=== PATIENT | female | born 1950 | race Caucasian/White ===

== ENCOUNTER → 2016-08-23 | Outpatient (CLI) | payer MEDICARE, OTHER ==
--- NOTE | 2016-08-23 19:55 | Diagnostic Imaging Report ---
Bilateral diagnostic mammogram. No prior studies are available for comparison. INDICATION: Right breast tenderness. The current study was also evaluated with a Computer Aided Detection (CAD) system. FINDINGS: There is an 8 mm asymmetry along the outer aspect of the left breast. The breasts are composed of heterogeneously dense parenchyma which may decrease mammographic sensitivity. There are benign-appearing calcifications seen. There is an asymmetry along the outer aspect of the left breast. This is evaluated with focal compression view which demonstrates spreadout of the asymmetry with no underlying suspicious lesion remaining. IMPRESSION: No mammographic evidence of malignancy. Ultrasound evaluation pending. ACR BI-RADS Category 0: Incomplete. (Needs additional imaging evaluation). Result letter will be mailed to the patient. Note: At least 10% of breast cancer is not imaged by mammography. Dictated by: Dictated on workstation # [id number]
--- NOTE | 2016-08-23 21:19 | Diagnostic Imaging Report ---
EXAM: Bilateral breast ultrasound. INDICATION: Right breast tenderness. Asymmetry along the lateral aspect of the left breast. FINDINGS: The four-quadrant and retroareolar regions of the breasts were scanned with no underlying abnormality seen on either side. IMPRESSION: Negative study. Clinical followup for area of tenderness is recommended. If no clinical indication for further diagnostic imaging, then screening annual mammogram would be due in August 2017. BI-RADS 1. ACR BI-RADS Category 1: Negative. Result letter will be mailed to the patient. Note: At least 10% of breast cancer is not imaged by mammography. Dictated by: Dictated on workstation # [id number]
== END ==
LOC: RAD 11:07
PROVIDERS: ATTEND Family Medicine
DX: N64.4 Mastodynia (principal)
CPT/HCPCS: 77066

== ENCOUNTER → 2017-09-06 | Outpatient (CLI) | payer MEDICARE, OTHER ==
--- NOTE | 2017-09-06 13:46 | Diagnostic Imaging Report ---
INDICATION: Screening. COMPARISON: 08/23/2016. TECHNIQUE: Screening digital mammography was performed bilaterally with a Computer Aided Detection (CAD) system. FINDINGS: There is moderately dense fibroglandular tissue bilaterally. There are extensive vascular calcifications. There is no dominant mass, spiculated lesion, or suspicious calcification identified. The skin, nipples, and axillae are unremarkable. IMPRESSION: Benign findings. ACR BI-RADS Category 2: Benign findings. Result letter will be mailed to the patient. Note: At least 10% of breast cancer is not imaged by mammography. Dictated on workstation # [id number]
== END ==
LOC: RAD 09:47
PROVIDERS: ATTEND Family Medicine
DX: Z12.31 Encounter for screening mammogram for malignant neoplasm of breast (principal)
CPT/HCPCS: 77067

== ENCOUNTER → 2018-10-10 | Outpatient (CLI) | payer MEDICARE, OTHER ==
--- NOTE | 2018-10-10 14:06 | Diagnostic Imaging Report ---
INDICATION: Routine screening. COMPARISON: 09/06/2017 and 08/23/2016. TECHNIQUE: 2D and 3D bilateral screening mammography was performed with CAD. FINDINGS: Both breasts remain heterogeneously dense, limiting the sensitivity of mammography. Vascular calcifications are again noted bilaterally. No mass or malignant appearing microcalcifications are seen. The axillae are unremarkable. IMPRESSION: No mammographic features suspicious for malignancy are identified. ACR BI-RADS Category 2: Benign findings. Result letter will be mailed to the patient. Note: At least 10% of breast cancer is not imaged by mammography. Dictated by: Dictated on workstation # [id number]
== END ==
LOC: RAD 09:45
PROVIDERS: ATTEND Family Medicine
DX: Z12.31 Encounter for screening mammogram for malignant neoplasm of breast (principal)
CPT/HCPCS: 77067

== ENCOUNTER → 2019-11-14 | Outpatient (CLI) | payer MEDICARE, OTHER ==
--- NOTE | 2019-11-15 10:25 | Diagnostic Imaging Report ---
INDICATION: Routine screening. COMPARISON is made with prior mammograms from 10/10/2018 and 09/06/2017. 2-D and 3-D bilateral screening mammography was performed with CAD. Both breasts remain heterogeneously dense, limiting the sensitivity of mammography. Benign parenchymal and vascular calcifications are again noted. No dominant mass or malignant appearing microcalcifications are identified. Axillae are unremarkable. IMPRESSION: BI-RADS Category 2 No mammographic features suspicious for malignancy are identified. ACR BI-RADS Category 2: Benign findings. Result letter will be mailed to the patient. Note: At least 10% of breast cancer is not imaged by mammography. Dictated by: Dictated on workstation # [id number]
== END ==
LOC: RAD 15:18
PROVIDERS: ATTEND Family Medicine
DX: Z12.31 Encounter for screening mammogram for malignant neoplasm of breast (principal)
CPT/HCPCS: 77063; 77067

== ENCOUNTER → 2022-03-17 | Outpatient (CLI) | payer MEDICARE, OTHER ==
--- NOTE | 2022-03-17 16:35 | Diagnostic Imaging Report ---
INDICATION: Routine screening. COMPARISON: 11/14/2019 and 10/10/2018. TECHNIQUE: 2D and 3D bilateral screening mammography was performed with CAD. FINDINGS: Both breasts are heterogeneously dense, limiting the sensitivity of mammography. Benign parenchymal and vascular calcifications are noted bilaterally. The axillae are unremarkable. IMPRESSION: No mammographic features suspicious for malignancy are identified. ACR BI-RADS Category 2: Benign findings. Result letter will be mailed to the patient. Note: At least 10% of breast cancer is not imaged by mammography. Dictated by: Dictated on workstation # [id number]
== END ==
LOC: RAD 15:14
PROVIDERS: ATTEND Family Medicine
DX: Z12.31 Encounter for screening mammogram for malignant neoplasm of breast (principal)
CPT/HCPCS: 77063; 77067

== ENCOUNTER → 2023-03-28 | Outpatient (CLI) | payer MEDICARE, OTHER ==
--- NOTE | 2023-03-28 12:43 | Diagnostic Imaging Report ---
INDICATION: Routine screening. COMPARISON: 03/17/2022 and 11/14/2019. TECHNIQUE: 2D and 3D bilateral screening mammography was performed with CAD. FINDINGS: Both breasts are heterogeneously dense, limiting the sensitivity of mammography. There is a new circumscribed nodule in the upper and outer aspect of the right breast approximately 5 cm from the nipple. This has fairly circumscribed margins and could represent a small cyst. No other masses are identified. No malignant-appearing microcalcifications are identified. The axillae are unremarkable. IMPRESSION: Right breast nodule. Additional views and ultrasound are recommended for further evaluation. ACR BI-RADS Category 0: Incomplete. (Needs additional imaging evaluation). Result letter will be mailed to the patient. Note: At least 10% of breast cancer is not imaged by mammography. Dictated by: Dictated on workstation # [id number]
== END ==
LOC: RAD 10:10
PROVIDERS: ATTEND Family Medicine
DX: Z12.31 Encounter for screening mammogram for malignant neoplasm of breast (principal); N63.11 Unspecified lump in the right breast, upper outer quadrant
CPT/HCPCS: 77063; 77067

== ENCOUNTER → 2023-04-11 | Outpatient (CLI) | payer MEDICARE, OTHER ==
--- NOTE | 2023-04-11 15:23 | Diagnostic Imaging Report ---
INDICATION: Right breast density. Patient presents for additional views. Correlation is made with screening study from 03/28/2023. Unilateral right 2-D and 3-D diagnostic mammography was performed with CAD. This included spot compression CC and ML views as well as conventional 90 degrees lateral views. There is a persistent small nodular density in the outer right breast on spot compression CC view approximately 5 cm from the nipple. This appears to project just below the nipple line on the MLO view. There are benign calcifications present. No malignant-appearing microcalcifications are identified. IMPRESSION: Persistent density in the outer right breast. Further evaluation with ultrasound is recommended and will be performed today. ACR BI-RADS Category 0: Incomplete. (Needs additional imaging evaluation). Result letter will be mailed to the patient. Note: At least 10% of breast cancer is not imaged by mammography. BI-RADS Category 0 Dictated by: Dictated on workstation # [id number]
--- NOTE | 2023-04-11 15:30 | Diagnostic Imaging Report ---
INDICATION: Right breast density. Patient had abnormal mammogram. This study is performed for further evaluation. COMPARISON: Correlation is made with the diagnostic mammogram from earlier this same day and screening mammogram from 03/28/2023. FINDINGS: Sonographic interrogation of the outer right breast was performed. At the 8 o'clock location of the right breast 4 cm from the nipple, there is a small cyst measuring approximately 4 mm x 5 mm. This likely accounts for the mammographic density. No solid mass is detected. IMPRESSION: Tiny cyst at the 8 o'clock location of the right breast, likely accounting for the mammographic density. The patient may return to routine annual screening mammography. ACR BI-RADS Category 2: Benign findings. Dictated by: Dictated on workstation # [id number]
== END ==
LOC: RAD 13:53
PROVIDERS: ATTEND Family Medicine
DX: N60.01 Solitary cyst of right breast (principal); R92.30 Dense breasts, unspecified
CPT/HCPCS: 76642; 77065; G0279